=== PATIENT | female | born 1960 | race Two or more races ===

== ENCOUNTER → 2016-10-16 | Outpatient (CLI) | payer OTHER ==
[~2016-10-16] MED LIST: ATEN100T PO; DULO60CA PO; LIS10T PO; PERCOT PO; Pantoprazole Sodium Sesquihydr PO; TRIA75TA55 PO
[2016-10-16 12:30] LABS: Partial Thromboplastin Time 23.5 sec (22.64-33.71); Prothrombin Time 10.3 sec (9.37-12.3)
[2016-10-16 12:36] LABS: Basophils # (auto) 0.1 uL; DEFINITIVE VIEW TRANSMISSION; Eosinophils # (auto) 0.2 uL; Eosinophils % (auto) 3.2 % (0.0-7.0); Hematocrit 25.9 % (36.0-46.0); Hemoglobin 8.1 g/dL (12.2-16.2); Lymphocytes # (auto) 1.4 uL; Lymphocytes % (auto) 23.8 % (10.0-50.0); Mean Corpuscular Hemoglobin 22.3 pg (28.0-32.0); Mean Corpuscular Hgb Conc. 31.1 g/dL (32.0-36.0); Mean Corpuscular Volume 71.6 fL (80.0-100.0); Mean Platelet Volume 7.9 fL (7.4-10.4); Monocytes # (auto) 0.4 uL; Monocytes % (auto) 6.1 % (0.0-12.0); Neutrophils # (auto) 3.9 uL; Neutrophils % (auto) 65.9 % (37.0-80.0); Platelet Count (auto) 394 10^3/uL (140-450); Red Cell Distribution Width 17.4 % (11.6-16.0)
[2016-10-16 12:37] LABS: Urine Bilirubin Negative (Negative); Urine Blood Negative /uL (Negative); Urine Color Yellow (Yellow); Urine Glucose Normal (Normal); Urine Ketone Negative (Negative); Urine Mucus FEW (None Seen); Urine Nitrite Negative (Negative); Urine RBC <1 /hpf (0 - 4); Urine Squamous Epithelial Cell FEW /hpf (<5); Urine Urobilinogen Normal (Negative)
[2016-10-16 13:11] LABS: Albumin 3.7 g/dL (3.4-5.0); BUN/Creatinine Ratio 26.3; Bilirubin, Total 0.3 mg/dL (0.2-1.0); Calcium 9.6 mg/dL (8.5-10.1); Potassium 3.4 mmol/L (3.5-5.1); Total Protein 7.2 g/dL (6.4-8.2)
== END | disposition home or self-care (01) ==
LOC: LAB 11:10
PROVIDERS: ATTEND Internal Medicine
DX: Z01.818 Encounter for other preprocedural examination (principal); I10 Essential (primary) hypertension
CPT/HCPCS: 36415; 80053; 81001; 84439; 84443; 85025; 85049; 85610; 85730

== ENCOUNTER 2016-10-18 19:23 | Inpatient (IN) | payer OTHER ==
[~2016-10-18] VITALS: Ht 162.6 cm; Wt 81.8 kg
[2016-10-18 20:44] LABS: Basophils # (auto) 0.1 uL; Basophils % (auto) 0.9 % (0.0-2.0); DEFINITIVE VIEW TRANSMISSION; Eosinophils # (auto) 0.2 uL; Eosinophils % (auto) 3.3 % (0.0-7.0); Hematocrit 27.5 % (36.0-46.0); Hemoglobin 8.4 g/dL (12.2-16.2); Lymphocytes # (auto) 1.5 uL; Lymphocytes % (auto) 24.5 % (10.0-50.0); Mean Corpuscular Hemoglobin 21.8 pg (28.0-32.0); Mean Corpuscular Hgb Conc. 30.5 g/dL (32.0-36.0); Mean Corpuscular Volume 71.5 fL (80.0-100.0); Mean Platelet Volume 7.7 fL (7.4-10.4); Monocytes # (auto) 0.4 uL; Monocytes % (auto) 5.8 % (0.0-12.0); Neutrophils % (auto) 65.5 % (37.0-80.0); Platelet Count (auto) 427 10^3/uL (140-450); Red Cell Distribution Width 17.7 % (11.6-16.0); White Blood Cell 6.1 10^3/uL (4.4-10.8)
[2016-10-18 20:57] LABS: Urine Bilirubin Negative (Negative); Urine Blood Negative /uL (Negative); Urine Color Yellow (Yellow); Urine Glucose Normal (Normal); Urine Ketone Negative (Negative); Urine Mucus FEW (None Seen); Urine Nitrite Negative (Negative); Urine RBC 1 /hpf (0 - 4); Urine Squamous Epithelial Cell FEW /hpf (<5); Urine Urobilinogen Normal (Negative); Urine pH 6.5 (5.0-8.0)
[2016-10-18 21:00] LABS: INR 0.97 (0.9-1.15); Partial Thromboplastin Time 24.3 sec (22.64-33.71)
[2016-10-18 21:05] LABS: Albumin 3.9 g/dL (3.4-5.0); BUN/Creatinine Ratio 27.1; Bilirubin, Total 0.2 mg/dL (0.2-1.0); Calcium 9.3 mg/dL (8.5-10.1); Potassium 3.7 mmol/L (3.5-5.1); Total Protein 7.6 g/dL (6.4-8.2)
[2016-10-19] VITALS (7 sets, daily range): BP systolic 114–177; BP diastolic 48–94
[2016-10-19] MEDS ORDERED: HYDROcodone-ACET 10/325MG TAB PO ONE (05:00)
[2016-10-19] MEDS ORDERED: LISINOPRIL 10 MG TAB PO ONE (07:30)
[2016-10-19] MEDS ORDERED: TRIAMTERENE/HCTZ 75/50MG TABLET PO ONE (07:30)
[2016-10-19] MEDS ORDERED: ATENOLOL 50 MG TAB PO ONE (07:30)
[2016-10-19] MEDS: MORPHINE SULFATE 4 MG/ML SYRG IV ONE ×2 (09:45→10:37)
[2016-10-19] MEDS: ONDANSETRON HCL 4 MG/2 ML VIAL IV ONE ×2 (09:45→10:35)
[2016-10-19] MEDS ORDERED: cefTRIAXone 1GM/50ML D5W 50 ML IV ONE (12:30)
[2016-10-19] MEDS ORDERED: HYDROcodone-ACET 5/325MG TAB PO PRN (12:30)
[2016-10-19] MEDS ORDERED: PANTOPRAZOLE SODIUM 40 MG/10 ML VIAL IV ONE (12:30)
[2016-10-19] MEDS ORDERED: LORazepam 0.5 MG TAB PO PRN (12:30)
[2016-10-19] MEDS ORDERED: NITROGLYCERIN 0.4 MG SL TAB SL PRN (12:30)
[2016-10-19] MEDS ORDERED: ACETAMINOPHEN 500 MG TAB PO PRN (12:30)
[2016-10-19] MEDS ORDERED: PROMETHAZINE HCL 25 MG/ML 1ML IV PRN (12:30)
[2016-10-19] MEDS ORDERED: MORPHINE SULF INJ 2 MG/ML SYRINGE 1ML IV PRN (12:30)
[2016-10-19] MEDS: SODIUM CHLORIDE 0.9% 1,000 ML IV SCH ×2 (12:36→20:22)
[2016-10-19] MEDS: OXYCODONE W/ ACETAMINOPHEN 5/325MG TABLET PO PRN (14:05)
[2016-10-19] MEDS: MORPHINE SULF INJ 2 MG/ML SYRINGE 1ML IV PRN ×2 (17:02→22:25)
[2016-10-19] MEDS ORDERED: LEV50T PO (17:27)
[2016-10-19 18:20] LABS: Hematocrit 40.5 % (36.0-46.0); Hemoglobin 12.6 g/dL (12.2-16.2)
[2016-10-19] MEDS ORDERED: LISINOPRIL 10 MG TAB PO SCH (22:00)
[2016-10-19] MEDS ORDERED: ATENOLOL 50 MG TAB PO SCH (22:00)
[2016-10-19] MEDS ORDERED: ATENOLOL 50 MG PO SCH (22:00)
[2016-10-19] MEDS: PANTOPRAZOLE 40 MG TAB PO SCH (22:26)
[2016-10-20 01:06] LABS: Hematocrit 30.7 % (36.0-46.0); Hemoglobin 9.6 g/dL (12.2-16.2)
[2016-10-20] MEDS: TEMAZEPAM 15 MG CAP PO PRN ×2 (01:19→22:45)
[2016-10-20] MEDS: SODIUM CHLORIDE 0.9% 1,000 ML IV SCH ×3 (03:00→15:04)
[2016-10-20 04:56] VITALS: BP 137/63
[2016-10-20 06:37] LABS: Hematocrit 30.3 % (36.0-46.0); Hemoglobin 9.5 g/dL (12.2-16.2)
[2016-10-20 09:00] VITALS: BP 139/76
[2016-10-20] MEDS: cefTRIAXone 1GM/50ML D5W 50 ML IV SCH (09:15)
[2016-10-20] MEDS ORDERED: PANTOPRAZOLE SODIUM 40 MG/10 ML VIAL IV SCH (10:00)
[2016-10-20] MEDS ORDERED: PATIENTS OWN MEDICATION (Duloxetine Hcl (Cymbalta) 1 CAP) PO SCH (10:00)
[2016-10-20] MEDS ORDERED: TRIAMTERENE/HCTZ 75/50MG TABLET PO SCH (10:00)
[2016-10-20] MEDS: DULoxetine HCL 30 MG CAP PO SCH (10:34)
[2016-10-20] MEDS: PANTOPRAZOLE 40 MG TAB PO SCH ×2 (10:34→21:19)
[2016-10-20] MEDS: OXYCODONE W/ ACETAMINOPHEN 5/325MG TABLET PO PRN ×3 (10:35→21:33)
[2016-10-20 13:46] VITALS: BP 149/95
[2016-10-20] MEDS: MORPHINE SULF INJ 2 MG/ML SYRINGE 1ML IV PRN (15:04)
[2016-10-20 17:04] VITALS: BP 134/73
[2016-10-20 22:00] VITALS: BP 150/73
[2016-10-21] MEDS: OXYCODONE W/ ACETAMINOPHEN 5/325MG TABLET PO PRN ×2 (03:24→04:14)
[2016-10-21] MEDS: MORPHINE SULF INJ 2 MG/ML SYRINGE 1ML IV PRN ×3 (03:34→20:27)
[2016-10-21 05:00] VITALS: BP 152/90
[2016-10-21 06:12] LABS: Basophils # (auto) 0.1 uL; Basophils % (auto) 0.7 % (0.0-2.0); DEFINITIVE VIEW TRANSMISSION; Eosinophils # (auto) 0.2 uL; Eosinophils % (auto) 2.7 % (0.0-7.0); Hematocrit 29.8 % (36.0-46.0); Hemoglobin 9.4 g/dL (12.2-16.2); Lymphocytes # (auto) 1.2 uL; Mean Corpuscular Hemoglobin 23.5 pg (28.0-32.0); Mean Corpuscular Hgb Conc. 31.5 g/dL (32.0-36.0); Mean Corpuscular Volume 74.9 fL (80.0-100.0); Mean Platelet Volume 8.1 fL (7.4-10.4); Monocytes # (auto) 0.6 uL; Monocytes % (auto) 8.2 % (0.0-12.0); Neutrophils # (auto) 5.4 uL; Neutrophils % (auto) 72.4 % (37.0-80.0); Platelet Count (auto) 259 10^3/uL (140-450); Red Cell Distribution Width 19.9 % (11.6-16.0); White Blood Cell 7.4 10^3/uL (4.4-10.8)
[2016-10-21] MEDS: cefTRIAXone 1GM/50ML D5W 50 ML IV SCH (08:11)
[2016-10-21 09:00] VITALS: BP 142/74
[2016-10-21] MEDS: DULoxetine HCL 30 MG CAP PO SCH (09:58)
[2016-10-21] MEDS: ATENOLOL 50 MG TAB PO SCH (09:59)
[2016-10-21] MEDS: PANTOPRAZOLE 40 MG TAB PO SCH ×2 (09:59→22:07)
[2016-10-21] MEDS: LISINOPRIL 10 MG TAB PO SCH (10:00)
[2016-10-21] MEDS ORDERED: MIDAZOLAM HCL 5 MG/ML-1ML VIAL ONE (11:02)
[2016-10-21] MEDS ORDERED: fentaNYL CITRATE 100 MCG/2 ML VL ONE (11:02)
[2016-10-21] MEDS ORDERED: diphenhdrAMINE HCL 50 MG/1 ML VL ONE (11:02)
[2016-10-21] MEDS ORDERED: FLUMAZENIL 0.1 MG/ML INJ 10ML MDV IV ONE (11:02)
[2016-10-21] MEDS ORDERED: LIDOCAINE VISCOUS 2% 15ML UD ONE (11:02)
[2016-10-21] MEDS ORDERED: NALOXONE HCL 0.4 MG/ML VIAL ONE (11:02)
[2016-10-21] MEDS ORDERED: SODIUM CHLORIDE LOCK 10 ML ONE (11:03)
[2016-10-21 13:00] VITALS: BP 138/80
[2016-10-21] MEDS: SODIUM CHLORIDE 0.9% 1,000 ML IV SCH (13:12)
[2016-10-21 17:00] VITALS: BP 141/78
[2016-10-21 21:11] VITALS: BP 142/80
[2016-10-21] MEDS: TEMAZEPAM 15 MG CAP PO PRN (22:26)
[2016-10-22] MEDS: MORPHINE SULF INJ 2 MG/ML SYRINGE 1ML IV PRN ×2 (01:49→08:07)
[2016-10-22] MEDS: SODIUM CHLORIDE 0.9% 1,000 ML IV SCH (02:32)
[2016-10-22 05:43] LABS: Basophils # (auto) 0.1 uL; DEFINITIVE VIEW TRANSMISSION; Eosinophils # (auto) 0.2 uL; Hemoglobin 9.4 g/dL (12.2-16.2); Neutrophils # (auto) 4.6 uL; Neutrophils % (auto) 65.9 % (37.0-80.0)
[2016-10-22 05:57] VITALS: BP 141/73
[2016-10-22 06:03] LABS: Hematocrit 30.4 % (36.0-46.0); Lymphocytes # (auto) 1.4 uL; Lymphocytes % (auto) 20.5 % (10.0-50.0); Mean Corpuscular Hemoglobin 23.1 pg (28.0-32.0); Mean Corpuscular Volume 74.7 fL (80.0-100.0); Mean Platelet Volume 8.3 fL (7.4-10.4); Monocytes # (auto) 0.7 uL; Monocytes % (auto) 9.6 % (0.0-12.0); Platelet Count (auto) 264 10^3/uL (140-450); White Blood Cell 6.9 10^3/uL (4.4-10.8)
[2016-10-22 06:10] LABS: Calcium 8.3 mg/dL (8.5-10.1); Potassium 3.7 mmol/L (3.5-5.1)
[2016-10-22 06:24] LABS: Red Cell Distribution Width 20.1 % (11.6-16.0)
[2016-10-22 06:56] LABS: Platelet Estimate Adequate
[2016-10-22 06:57] LABS: Anisocytosis Slight; Hypochromia Moderate; Ovalocytes FEW
[2016-10-22 06:58] LABS: Hypersegmented Neutrophils Present
[2016-10-22] MEDS: PANTOPRAZOLE 40 MG TAB PO SCH (09:08)
[2016-10-22] MEDS: ATENOLOL 50 MG TAB PO SCH (09:08)
[2016-10-22] MEDS: LISINOPRIL 10 MG TAB PO SCH (09:09)
[2016-10-22] MEDS: cefTRIAXone 1GM/50ML D5W 50 ML IV SCH (09:10)
[2016-10-22] MEDS: DULoxetine HCL 30 MG CAP PO SCH (09:10)
[2016-10-22 09:19] VITALS: BP 157/80
[2016-10-22 13:00] VITALS: BP 139/72
[2016-10-22 13:56] VITALS: BP 157/80
== END 2016-10-22 15:45 | disposition home or self-care (01) | DRG 378 ==
LOC: ER 19:27 → TELE 19:28 → TELE-CENTR 10-19 14:40 → CENTRAL 10-20 13:57
PROVIDERS: ADMIT Internal Medicine; ATTEND Family Medicine
PROC: 30233N1 Transfusion of Nonautologous Red Blood Cells into Peripheral Vein, Percutaneous Approach (ICD-10-PCS; 2016-10-19)
PROC: 0DB68ZX Excision of Stomach, Via Natural or Artificial Opening Endoscopic, Diagnostic (ICD-10-PCS; principal; 2016-10-21 11:10)
DX: K25.4 Chronic or unspecified gastric ulcer with hemorrhage (principal); N39.0 Urinary tract infection, site not specified; K29.80 Duodenitis without bleeding; D50.9 Iron deficiency anemia, unspecified; E03.9 Hypothyroidism, unspecified; M16.0 Bilateral primary osteoarthritis of hip; E78.5 Hyperlipidemia, unspecified; F32.9 Major depressive disorder, single episode, unspecified; I10 Essential (primary) hypertension; K29.70 Gastritis, unspecified, without bleeding; K44.9 Diaphragmatic hernia without obstruction or gangrene; Z82.3 Family history of stroke; Z82.49 Family history of ischemic heart disease and other diseases of the circulatory system; Z83.3 Family history of diabetes mellitus; K59.00 Constipation, unspecified; R73.9 Hyperglycemia, unspecified; Z80.9 Family history of malignant neoplasm, unspecified; Z84.89 Family history of other specified conditions; Z82.61 Family history of arthritis; Z87.11 Personal history of peptic ulcer disease; Z90.710 Acquired absence of both cervix and uterus
CPT/HCPCS: 36415; 36430; 43239; 80048; 80053; 81001; 82270; 82378; 85014; 85018; 85025; 85045; 85049; 85610; 85652; 85730; 86141; 86850; 86900; 86901; 86920; 87081; 87086; 96365; 96375; C9113; J0696; J2250; J2405

== ENCOUNTER → 2016-12-13 | Outpatient (CLI) | payer OTHER ==
[~2016-12-13] MED LIST changes: -ATEN100T PO; +LEV50T PO; -TRIA75TA55 PO
[2016-12-13 13:30] LABS: Basophils # (auto) 0.1 uL; DEFINITIVE VIEW TRANSMISSION; Eosinophils # (auto) 0.2 uL; Lymphocytes # (auto) 1.3 uL; Monocytes # (auto) 0.6 uL; Neutrophils # (auto) 4.3 uL; Neutrophils % (auto) 66.4 % (37.0-80.0); White Blood Cell 6.5 10^3/uL (4.4-10.8)
[2016-12-13 13:52] LABS: Basophils % (auto) 1.4 % (0.0-2.0); Eosinophils % (auto) 3.3 % (0.0-7.0); Hematocrit 37.6 % (36.0-46.0); Hemoglobin 12.2 g/dL (12.2-16.2); Lymphocytes % (auto) 20.1 % (10.0-50.0); Mean Corpuscular Hemoglobin 26.8 pg (28.0-32.0); Mean Corpuscular Hgb Conc. 32.5 g/dL (32.0-36.0); Mean Corpuscular Volume 82.6 fL (80.0-100.0); Mean Platelet Volume 8.1 fL (7.4-10.4); Monocytes % (auto) 8.8 % (0.0-12.0); Platelet Count (auto) 351 10^3/uL (140-450); Red Cell Distribution Width 24.2 % (11.6-16.0)
[2016-12-13 14:42] LABS: Albumin 3.7 g/dL (3.4-5.0); BUN/Creatinine Ratio 27.8; Bilirubin, Total 0.3 mg/dL (0.2-1.0); Calcium 9.4 mg/dL (8.5-10.1); Potassium 4.2 mmol/L (3.5-5.1)
== END | disposition home or self-care (01) ==
LOC: LAB 13:06
PROVIDERS: ATTEND Internal Medicine
DX: Z01.818 Encounter for other preprocedural examination (principal); I10 Essential (primary) hypertension; M16.0 Bilateral primary osteoarthritis of hip
CPT/HCPCS: 36415; 80053; 85025; 85652; 86141

== ENCOUNTER → 2016-12-17 | Outpatient (CLI) | payer OTHER ==
[2016-12-17 16:06] LABS: Urine Bilirubin Negative (Negative); Urine Color Yellow (Yellow); Urine Glucose Normal (Normal); Urine Hyaline Cast FEW /lpf (0 - 2); Urine Ketone Negative (Negative); Urine Mucus FEW (None Seen); Urine Nitrite Negative (Negative); Urine RBC 9 /hpf (0 - 4); Urine Squamous Epithelial Cell FEW /hpf (<5); Urine Urobilinogen Normal (Negative); Urine pH 6.5 (5.0-8.0)
[2016-12-17 17:01] LABS: Urine Blood 2+ /uL (Negative)
[2016-12-17 17:14] LABS: INR 0.95 (0.9-1.15); Prothrombin Time 9.8 sec (9.37-12.3)
== END | disposition home or self-care (01) ==
LOC: LAB 15:30
PROVIDERS: ATTEND Internal Medicine
DX: Z01.812 Encounter for preprocedural laboratory examination (principal)
CPT/HCPCS: 36415; 81001; 85610; 85730

== ENCOUNTER 2019-08-07 13:38 | Emergency (ER) | payer OTHER ==
[~2019-08-07] VITALS: Ht 152.4 cm; Wt 84.4 kg
[2019-08-07 14:00] VITALS: BP 122/69
== END 2019-08-07 15:49 | disposition home or self-care (01) ==
LOC: ER 13:38
DX: S90.32XA Contusion of left foot, initial encounter (principal); I10 Essential (primary) hypertension; Z79.899 Other long term (current) drug therapy; W10.9XXA Fall (on) (from) unspecified stairs and steps, initial encounter; Y93.89 Activity, other specified; Y92.89 Other specified places as the place of occurrence of the external cause; Y99.8 Other external cause status
CPT/HCPCS: 73630

== ENCOUNTER 2021-06-19 04:04 | Emergency (ER) | payer OTHER ==
[~2021-06-19] VITALS: Ht 152.4 cm; Wt 90.7 kg
[2021-06-19 05:53] VITALS: BP 151/93
[2021-06-19] MEDS ORDERED: KETOROLAC TROMETH 60MG/2ML VIAL IM ONE (06:15)
== END 2021-06-19 06:31 | disposition home or self-care (01) ==
LOC: ER 04:04
DX: S82.142A Displaced bicondylar fracture of left tibia, initial encounter for closed fracture (principal); E66.9 Obesity, unspecified; Z68.39 Body mass index [BMI] 39.0-39.9, adult; I10 Essential (primary) hypertension; E03.9 Hypothyroidism, unspecified; Z79.899 Other long term (current) drug therapy; W18.39XA Other fall on same level, initial encounter; Y93.89 Activity, other specified; Y92.89 Other specified places as the place of occurrence of the external cause; Y99.8 Other external cause status
CPT/HCPCS: 29505; 73562; 73590; 96372; 99284; J1885

== ENCOUNTER 2021-07-03 11:55 | Inpatient (IN) | payer OTHER ==
[~2021-07-03] VITALS: Ht 157.5 cm; Wt 98.3 kg
[2021-07-03] MEDS ORDERED: cefTRIAXone 1GM/50ML D5W 50 ML IV ONE (13:45)
[2021-07-03] MEDS ORDERED: HYDROcodone-ACET 10/325MG TAB PO ONE (14:15)
[2021-07-03] MEDS ORDERED: ONDANSETRON ODT 4 MG TAB PO ONE (14:15)
[2021-07-03 14:26] LABS: Basophils # (auto) 0.1 10 ^3/uL (0-0.2); Eosinophils # (auto) 0.3 10 ^3/uL (0-0.8); Eosinophils % (auto) 4.6 % (0.0-7.0); Hematocrit 40.2 % (36.0-46.0); Hemoglobin 13.2 g/dL (12.2-16.2); Lymphocytes # (auto) 1.3 10 ^3/uL (0.4-5.4); Lymphocytes % (auto) 19.1 % (10.0-50.0); Mean Corpuscular Hemoglobin 32.2 pg (28.0-32.0); Mean Corpuscular Hgb Conc. 32.7 g/dL (32.0-36.0); Mean Corpuscular Volume 98.4 fL (80.0-100.0); Monocytes # (auto) 0.7 10 ^3/uL (0-1.3); Neutrophils # (auto) 4.3 10 ^3/uL (1.6-8.6); Neutrophils % (auto) 64.3 % (37.0-80.0); Nucleated Red Blood Cells % 0.1 %; Red Blood Cells 4.08 10^6/uL (4.0-5.20); Red Cell Distribution Width 14.3 % (11.8-14.3); White Blood Cell 6.7 10^3/uL (4.4-10.8)
[2021-07-03 14:48] LABS: Albumin 3.2 g/dL (3.4-5.0); Calcium 8.9 mg/dL (8.5-10.1); Potassium 3.7 mmol/L (3.5-5.1)
[2021-07-03 14:51] LABS: BUN/Creatinine Ratio 22.5; Bilirubin, Total 0.6 mg/dL (0.2-1.0); Total Protein 6.7 g/dL (6.4-8.2)
[2021-07-03] MEDS ORDERED: ONDANSETRON HCL 4 MG/2 ML VIAL IV PRN (15:15)
[2021-07-03] MEDS ORDERED: DOCUSATE SOD 100 MG CAP PO PRN (15:15)
[2021-07-03] MEDS ORDERED: ACETAMINOPHEN 500 MG TAB PO PRN (15:15)
[2021-07-03] MEDS ORDERED: MORPHINE SULFATE INJECTION 2 MG/ML SYRG IV PRN (15:15)
[2021-07-03] MEDS ORDERED: HYDROcodone-ACET 5/325MG TAB PO PRN (15:15)
[2021-07-03] MEDS ORDERED: NITROGLYCERIN 0.4 MG SL TAB SL PRN (15:15)
[2021-07-03 17:39] LABS: INR 0.94 (0.9-1.15); Partial Thromboplastin Time 26.5 sec (23.6-33.0)
[2021-07-03 21:30] VITALS: BP 154/79
[2021-07-03 21:35] VITALS: BP 154/79
[2021-07-03] MEDS: MORPHINE SULFATE INJECTION 2 MG/ML SYRG IV PRN (21:37)
[2021-07-03] MEDS: CLINDAMYCIN 300MG IV 50 ML IV SCH (23:16)
[2021-07-03] MEDS: LISINOPRIL 10 MG TAB PO SCH (23:17)
[2021-07-04 04:48] VITALS: BP 118/64
[2021-07-04] MEDS: CLINDAMYCIN 300MG IV 50 ML IV SCH ×3 (05:59→21:27)
[2021-07-04] MEDS: LEVOTHYROXINE SODIUM 50 MCG TAB PO SCH (06:17)
[2021-07-04 09:30] VITALS: BP 118/89
[2021-07-04] MEDS: DULoxetine HCL 30 MG CAP PO SCH ×2 (10:00→10:07)
[2021-07-04] MEDS: THIAMINE HCL 100 MG TAB PO SCH (10:06)
[2021-07-04] MEDS: MULTIPLE VITAMIN TAB PO SCH (10:08)
[2021-07-04] MEDS: LISINOPRIL 10 MG TAB PO SCH (10:09)
[2021-07-04] MEDS: MORPHINE SULFATE INJECTION 2 MG/ML SYRG IV PRN ×2 (10:10→20:18)
[2021-07-04] MEDS: FOLIC ACID 1 MG TAB PO SCH (10:11)
[2021-07-04] MEDS ORDERED: LISI40TA11 PO (10:41)
[2021-07-04] MEDS ORDERED: FLUO-125 PO (10:42)
[2021-07-04] MEDS ORDERED: AMLO-489 PO (10:45)
[2021-07-04] MEDS ORDERED: TRAM50TA2 PO (10:45)
[2021-07-04] MEDS ORDERED: CELE100C82 PO (10:45)
[2021-07-04] MEDS ORDERED: PRED20TA2 PO (10:45)
[2021-07-04 13:56] VITALS: BP 126/70
[2021-07-04 17:29] VITALS: BP 131/63
[2021-07-04 22:00] VITALS: BP 138/63
[2021-07-05 05:00] VITALS: BP 119/81
[2021-07-05] MEDS: CLINDAMYCIN 300MG IV 50 ML IV SCH ×2 (06:17→14:00)
[2021-07-05] MEDS: LEVOTHYROXINE SODIUM 50 MCG TAB PO SCH (06:32)
[2021-07-05 06:44] LABS: Anion Gap 10 (5-15); Blood Urea Nitrogen 24 mg/dL (7-18); Calcium 8.7 mg/dL (8.5-10.1); Carbon Dioxide 21 mmol/L (21-32); Chloride 107 mmol/L (98-107); Glucose 84 mg/dL (74-106); Potassium 4.7 mmol/L (3.5-5.1); Sodium 138 mmol/L (136-145)
[2021-07-05 06:46] LABS: BUN/Creatinine Ratio 30.8; GFR African American 96 mL/min; GFR Non-African American 79 mL/min
[2021-07-05 07:23] LABS: Basophils # (auto) 0.1 10 ^3/uL (0-0.2); Basophils % (auto) 1.1 % (0.0-2.0); Eosinophils # (auto) 0.2 10 ^3/uL (0-0.8); Eosinophils % (auto) 3.1 % (0.0-7.0); Hematocrit 37.2 % (36.0-46.0); Hemoglobin 12.5 g/dL (12.2-16.2); Lymphocytes # (auto) 1.3 10 ^3/uL (0.4-5.4); Lymphocytes % (auto) 21.8 % (10.0-50.0); Mean Corpuscular Hemoglobin 33.4 pg (28.0-32.0); Mean Corpuscular Hgb Conc. 33.7 g/dL (32.0-36.0); Monocytes # (auto) 0.6 10 ^3/uL (0-1.3); Monocytes % (auto) 9.3 % (0.0-12.0); Neutrophils % (auto) 64.7 % (37.0-80.0); Nucleated Red Blood Cells % 0.1 %; Red Blood Cells 3.76 10^6/uL (4.0-5.20); Red Cell Distribution Width 13.9 % (11.8-14.3); White Blood Cell 6.2 10^3/uL (4.4-10.8)
[2021-07-05 09:00] VITALS: BP 122/91
[2021-07-05] MEDS: THIAMINE HCL 100 MG TAB PO SCH (09:21)
[2021-07-05] MEDS: MULTIPLE VITAMIN TAB PO SCH (09:21)
[2021-07-05] MEDS: FOLIC ACID 1 MG TAB PO SCH (09:21)
[2021-07-05] MEDS ORDERED: LISINOPRIL 10 MG TAB PO SCH (10:00)
[2021-07-05] MEDS ORDERED: FLUoxetine HCL 20 MG CAP PO SCH (10:00)
[2021-07-05 13:00] VITALS: BP 134/82
[2021-07-05 14:55] VITALS: BP 122/91
== END 2021-07-05 15:00 | disposition home or self-care (01) | DRG 605 ==
LOC: ER 11:55 → OVERFLOW 15:09 → CENTRAL 20:52
PROVIDERS: ADMIT Nurse Practitioner Acute Care; ATTEND Internal Medicine
DX: S80.12XA Contusion of left lower leg, initial encounter (principal); L03.116 Cellulitis of left lower limb; F32.A Depression, unspecified; I10 Essential (primary) hypertension; E03.9 Hypothyroidism, unspecified; M19.90 Unspecified osteoarthritis, unspecified site; W18.39XA Other fall on same level, initial encounter; Z20.822 Contact with and (suspected) exposure to COVID-19; E66.9 Obesity, unspecified; E78.5 Hyperlipidemia, unspecified; Z82.49 Family history of ischemic heart disease and other diseases of the circulatory system; Z83.3 Family history of diabetes mellitus; Z82.3 Family history of stroke; Y93.89 Activity, other specified; Y92.89 Other specified places as the place of occurrence of the external cause; Y99.8 Other external cause status; Z68.36 Body mass index [BMI] 36.0-36.9, adult
CPT/HCPCS: 36415; 73700; 73721; 80048; 80053; 84443; 85025; 85610; 85652; 85730; 87426; 93971; 96365; 97163; G0378; J0696; J3490; Q0162